=== PATIENT | female | born 1940 | race Caucasian/White ===

== ENCOUNTER → 2018-06-09 | Outpatient (CLI) | payer MEDICARE ==
--- NOTE | 2018-06-10 14:54 | KCIC ---
Three-view lumbar spine series Clinical indications: Intermittent back pain extending into left hip. No known injury. FINDINGS: Mild to moderate levoscoliosis is seen. The transverse processes are intact. No compression fracture or discitis or lytic process or anterolisthesis is evident. Degenerative facet arthropathy is seen from L3-4 down through L5-S1. There is moderate degenerative disc space narrowing and mild degenerative endplate spurring at L5-S1. There is moderate degenerative disc space narrowing at T12-L1 and L1-L2 with moderate degenerative endplate spurring. There is severe degenerative disc space narrowing and moderate degenerative endplate spurring at L2-3 with subchondral cyst formation and sclerosis. This is at the apex of the scoliosis. IMPRESSION: No acute compression fracture. Levoscoliosis and degenerative lumbar spondylosis most significant at L2-3. Electronically signed by: Gumaro Moseley MD (06/10/2018 2:51 PM) [id number]
== END | disposition home or self-care (01) ==
LOC: KCIC 15:19
PROVIDERS: ATTEND Internal Medicine
DX: M47.816 Spondylosis without myelopathy or radiculopathy, lumbar region (principal); M41.86 Other forms of scoliosis, lumbar region; M48.07 Spinal stenosis, lumbosacral region; M48.04 Spinal stenosis, thoracic region; M46.07 Spinal enthesopathy, lumbosacral region; M12.88 Other specific arthropathies, not elsewhere classified, other specified site
CPT/HCPCS: 72100